=== PATIENT | female | born 1960 | race Caucasian/White ===

== ENCOUNTER 2017-05-06 16:06 | Emergency (ER) | payer OTHER ==
[~2017-05-06] VITALS: Ht 165.1 cm; Wt 55.8 kg
[~2017-05-06 16:06] MED LIST: CITALOPRAM HBR20 MG PO; DIAZEPAM10 MG PO; HYDROCODON-ACE1 EAC9 PO; MELOXICAM15 MG PO; NARATRIPTAN HC2.5 MG PO; NEURONTIN800 MG PO; PROPRANOLOL HCL80 M1 PO; SYNTHROID75 MCG PO; VOLTAREN 1% GE100 GM TP
[2017-05-06] MEDS ORDERED: LIDODERM 5% P1 PATCH TD (19:28)
[2017-05-06] MEDS ORDERED: FLEXERIL10 MG PO (19:29)
[2017-05-06 19:53] VITALS: BP 142/94
== END 2017-05-06 19:54 | disposition home or self-care (01) ==
LOC: EME 16:06 → RME 16:06
DX: S16.1XXA Strain of muscle, fascia and tendon at neck level, initial encounter (principal)
CPT/HCPCS: 72100; 99281; 99283; Q0177

== ENCOUNTER 2018-03-03 14:42 | Emergency (ER) | payer OTHER ==
[~2018-03-03] VITALS: Ht 165.1 cm; Wt 65.2 kg
[~2018-03-03 14:42] MED LIST changes: +FLEXERIL10 MG PO; +LIDODERM 5% P1 PATCH TD
[2018-03-03 16:22] LABS: HEMOGLOBIN 12.2 G/DL (11.9-15.5); MCH 32.5 PG (29.0-34.0); MCHC 32.1 G/DL (30.0-36.0); MCV 101.3 FL (83-99); PLATELET COUNT 340 K/uL (156-360); RBC DIS.WIDTH-CV 12.8 % (11.8-14.6); RBC DIS.WIDTH-SD 47.8 % (39-53); RED BLOOD COUNT 3.75 M/uL (3.80-5.20); WHITE BLOOD COUNT 5.6 K/uL (4.1-10.2)
[2018-03-03 16:30] LABS: ALBUMIN 4.7 g/dL (3.2-4.8); CHLORIDE 106 mEq/L (99-109); POTASSIUM 3.6 mEq/L (3.7-5.4); SODIUM 140 mEq/L (136-147)
[2018-03-03 16:33] LABS: GLUCOSE 108 mg/dL (70-99); TOTAL PROTEIN 7.9 g/dL (6.4-8.3)
[2018-03-03 16:34] LABS: TOTAL BILIRUBIN 0.4 mg/dL (0.0-1.0)
[2018-03-03 16:35] LABS: SERUM ETHYL ALCOHOL < 10 mg/dL
[2018-03-03 16:36] LABS: ALKALINE PHOSPHATASE 99 IU/L (3-129); GFR ESTIMATE (CALCULATED) > 59 mL/min/
[2018-03-03 16:37] LABS: UREA NITROGEN (BUN) 18 mg/dL (9-23)
[2018-03-03 16:38] LABS: AST (GOT) 19 IU/L (2-34)
[2018-03-03 16:39] LABS: ALT (GPT) 19 IU/L (3-49)
[2018-03-03 16:52] LABS: AMPHETAMINE NEGATIVE (500 ng/mL); BARBITURATES PRESUMPTIVE POSITIVE (200 ng/mL); BENZODIAZEPINES PRESUMPTIVE POSITIVE (150 ng/mL); COCAINE NEGATIVE (150 ng/mL); METHADONE NEGATIVE (200 ng/mL); METHAMPHETAMINE NEGATIVE (500 ng/mL); OPIATES (MORPHINE) NEGATIVE (100 ng/mL); OXYCODONE PRESUMPTIVE POSITIVE (100 ng/mL); PHENCYCLIDINE NEGATIVE (25 ng/mL); THC CANNABINOIDS NEGATIVE (50 ng/mL); TRICYCLIC ANTIDEPRESSANTS PRESUMPTIVE POSITIVE (300 ng/mL)
[2018-03-03 16:53] LABS: BUPRENORPHINE NEGATIVE (10 ng/mL); PROPOXYPHENE NEGATIVE (300 ng/mL)
[2018-03-03 16:55] LABS: ANTI-HIV (AIDS STAT TEST) NONREACTIVE
[2018-03-03 17:36] LABS: BENZODIAZEPINES, URINE SCREEN POSITIVE (200 ng/mL)
[2018-03-03 17:55] VITALS: BP 133/90
[2018-03-04 10:48] LABS: TREPONEMA ANTIBODY NEGATIVE (NEGATIVE)
[2018-03-05 11:18] LABS: HEPATITIS B SURFACE ANTIGEN Nonreactive; HEPATITIS C ANTIBODY Nonreactive
[2018-03-05 11:19] LABS: ANTI-HEPATITIS B CORE (IGM) Nonreactive; HIV-1/2 AB/AG COMBO Nonreactive
[2018-03-06 08:45] LABS: SOURCE SWAB
== END 2018-03-03 17:56 | disposition home or self-care (01) ==
LOC: EME 14:42
PROVIDERS: Emergency Medicine
DX: T76.21XA Adult sexual abuse, suspected, initial encounter (principal)
CPT/HCPCS: 80053; 84999; 85027; 86705; 86780; 86803; 87081; 87340; 87389; 87491; 87591; 99281; 99285; G0480; J0696